=== PATIENT | female | born 1965 | race Caucasian/White ===

== ENCOUNTER 2018-10-14 10:50 | Inpatient (IN) ==
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
[2018-10-14 11:44] LABS: Bilirubin,Urine Negative (Negative); Blood,Urine Moderate (Negative); Clarity,Urine Cloudy (Clear); Color,Urine Yellow (Yellow); Glucose,Urine (UA) Normal (Normal); Ketones,Urine Negative (Negative); Leukocyte Esterase,Urine Large (Negative); Nitrite,Urine Negative (Negative); PH,Urine 6.5 pH Units (5.0-8.0); Protein,Urine Negative (Neg-Trace); Specific Gravity,Urine 1.005 (1.010-1.025); Urobilinogen,Urine Normal (Normal)
[2018-10-14 11:46] LABS: Hyaline Casts,Urine None Seen per lpf (None-Few); Squamous Epithelial Cell,Urine Many per lpf (None-Few); WBC,Urine 15-30 per hpf (0-3)
[2018-10-14 11:52] LABS: Amphetamine Screen,Urine Negative ng/mL (Cutoff=1000); Barbiturate Screen,Urine Negative ng/mL (Cutoff=200); Benzodiazepines Screen,Urine Positive ng/mL (Cutoff=200); Cannabinoid Screen,Urine Negative ng/mL (Cutoff = 50); Cocaine Screen,Urine Negative ng/mL (Cutoff= 300); Opiate Screen,Urine Negative ng/mL (Cutoff=300); Phencyclidine Screen,Urine Negative ng/mL (Cutoff=25)
[2018-10-14 11:56] LABS: Basophils % 0.3 %; Eosinophils # 0.1 K/mcL (0.0-0.6); Hematocrit 41.9 % (35.3-44.9); Immature Granulocytes % 0.3 % (0-4); Lymphocytes # 2.2 K/mcL (0.6-4.6); Lymphocytes % 20.8 %; Mean Corpuscular HGB Conc 33.4 g/dL (31.6-35.5); Mean Corpuscular Volume 86.9 fL (83.0-100.0); Mean Platelet Volume 10.5 fL (9.4-12.4); Monocytes # 0.6 K/mcL (0.0-1.3); Neutrophils # 7.6 K/mcL (1.6-8.9); Platelet Count 249 K/mcL (140-400); Red Blood Count 4.82 M/mcL (3.82-4.97); Red Cell Distribution Width 14.7 % (11.5-14.5); Segmented Neutrophils % 71.6 %
[2018-10-14 12:06] LABS: Acetaminophen < 10 mcg/mL (10-20); BUN/Creatinine Ratio 11 (6-26); Blood Urea Nitrogen 8 mg/dL (6-20); Calcium 9.7 mg/dL (8.6-10.3); Carbon Dioxide 24 mEq/L (23-29); Chloride 104 mEq/L (98-107); Ethanol < 10 mg/dL (Less than 10); Glucose 151 mg/dL (70-105); Osmolality,Calculated 285 (280-300); Salicylate < 2.5 mg/dL (15.0-30.0); Sodium 137 mEq/L (136-145); eGFR For Non-African Americans > 60 (> 60)
[2018-10-14 12:07] LABS: Bacteria,Urine Many per hpf (None-Few)
[2018-10-14 12:08] LABS: Yeast,Urine Few per hpf (None Seen)
[2018-10-14] MEDS ORDERED: MOM Conc 10 ML UD.LIQ PO PRN (14:08)
[2018-10-14] MEDS ORDERED: Mag Hydrox/Al Hydrox/Simeth 30 ML UDC PO PRN (14:08)
[2018-10-14] MEDS ORDERED: *HR* LORazepam 1 MG TABLET PO PRN (14:08)
[2018-10-14] MEDS ORDERED: Acetaminophen 325 MG TABLET PO PRN (14:08)
[2018-10-14] MEDS ORDERED: *HR* LORazepam 2 MG/ML VIAL IM PRN (14:08)
[2018-10-14] MEDS ORDERED: Ziprasidone 20 MG CAPSULE PO PRN (17:18)
[2018-10-14] MEDS ORDERED: Ziprasidone injection 20 MG/ML VIAL IM PRN (17:18)
[2018-10-14] MEDS ORDERED: *HR* Water for inj. (sterile) Vial IM PRN (17:18)
[2018-10-14] MEDS ORDERED: Albuterol 2.5 MG/3 ML NEBULIZER IH PRN (17:21)
[2018-10-14] MEDS ORDERED: diazePAM 10 MG TABLET PO PRN (17:21)
[2018-10-14] MEDS: Nicotine 21 MG PATCH.TD24 TD SCH (18:44)
[2018-10-15] MEDS: hydrOXYzine pamoate 25 MG CAPSULE PO PRN ×2 (01:55→20:48)
[2018-10-15] MEDS: traZODone 50 MG TABLET PO PRN ×2 (01:55→20:48)
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
[2018-10-15] MEDS: FLUoxetine 20 MG CAPSULE PO SCH (10:07)
[2018-10-15] MEDS: Nicotine 21 MG PATCH.TD24 TD SCH (10:08)
[2018-10-15] MEDS: Aspirin Enteric Coated 81 MG Tablet PO SCH (10:08)
[2018-10-15] MEDS: Multivit/Ca/Min/Fe/FA 1 TAB TABLET PO SCH (10:08)
[2018-10-15] MEDS: BuPROPion XL (24 HR) 150 MG TABLET PO SCH (10:08)
[2018-10-16] MEDS: BuPROPion XL (24 HR) 150 MG TABLET PO SCH (08:53)
[2018-10-16] MEDS: FLUoxetine 20 MG CAPSULE PO SCH (08:53)
[2018-10-16] MEDS: Aspirin Enteric Coated 81 MG Tablet PO SCH (08:53)
[2018-10-16] MEDS: Multivit/Ca/Min/Fe/FA 1 TAB TABLET PO SCH (08:53)
[2018-10-16] MEDS ORDERED: BuPROPion XL (24 HR) 150 MG TABLET PO SCH (09:00)
[2018-10-16 09:01] VITALS: BP 100/66
--- NOTE | 2018-10-16 09:50 | Discharge Summary ---
Date of Encounter: 10/16/18 Time of Encounter: 09:20 Diagnosis - Discharge Diagnosis (1) Depression Status: Acute Qualifiers: Depression Type: major depressive disorder Major depression recurrence: r ecurrent Active/Remission status: currently active Major depression episode severity: severe Psychotic features: without psychotic features Qualified Code(s): F33.2 - Major depressive disorder, recurrent severe without psychotic features Medications - Discharge Medications Prescriptions: hydrOXYzine pamoate [HydrOXYzine Pamoate] 25 mg PO TID PRN #45 capsule PRN Reason: Anxiety traZODone [TraZODone] 50 mg PO HS PRN #15 tablet PRN Reason: Insomnia BuPROPion XL (24 HR) [Wellbutrin Xl] 150 mg PO DAILY #15 tab.er.24h FLUoxetine HCl [Prozac] 40 mg PO DAILY 07/13/17 [History] Multivitamin [Multivitamins] 1 tab PO DAILY 07/13/17 [History] Cyclobenzaprine [Flexeril] 10 mg PO TID PRN #20 tablet 06/14/18 [Rx] diazePAM [Valium] 10 mg PO BID PRN 06/23/18 [History] Albuterol Neb [Proventil Neb] 2.5 mg IH TID PRN 10/14/18 [History] Albuterol Sulfate [Ventolin Hfa] 2 puff IH Q4H PRN 10/14/18 [History] Aspirin [Adult Aspirin Regimen] 81 mg PO DAILY 10/14/18 [History] Atorvastatin Calcium [Lipitor] 20 mg PO QAM 10/14/18 [History] BuPROPion XL (24 HR) [Wellbutrin Xl] 150 mg PO DAILY #15 tab.er.24h 10/16/18 [Rx] hydrOXYzine pamoate [HydrOXYzine Pamoate] 25 mg PO TID PRN #45 capsule 10/16/18 [Rx] traZODone [TraZODone] 50 mg PO HS PRN #15 tablet 10/16/18 [Rx] Allergy/AdvReac Type Severity Reaction Status Date / Time haloperidol [From Haldol] Allergy See Verified 10/14/18 14:45 Comments Results Procedures and tests throughout hospitalization: Completed Lab Orders Category Date Time Status Acetaminophen Stat Lab 10/14/18 11:34 Completed Basic Metabolic Panel Stat Lab 10/14/18 11:34 Completed Complete Blood Count [HEME] Stat Lab 10/14/18 11:34 Completed Drug Screen, Urine [UCHEM] Stat Lab 10/14/18 11:33 Completed Ethanol Stat Lab 10/14/18 11:34 Completed Salicylate Stat Lab 10/14/18 11:34 Completed Urinalysis reflex Microscopic [URIN] Stat Lab 10/14/18 11:22 Completed Provider Date of admission: 10/14/18 14:00 Primary care physician: PCP NONE Discharging clinician: Yadira Ruiz Psychiatry Exam - Constitutional Vitals: Temp Pulse Resp BP Pulse Ox 98.4 F 88 18 100/66 95 10/16/18 09:00 10/16/18 09:00 10/16/18 09:00 10/16/18 09:00 10/16/18 09:00 General appearance: age & developmentally appropriate, well-groomed, well- nourished - Musculoskeletal Gait: normal Station: relaxed Strength & Tone: normal for patient - Psychiatric Patient Orientation: Yes Person, Yes Time, Yes Place Level of alertness: Alert Behavior: calm, cooperative Psychomotor activity: Normal Eye Contact: Maintains Eye Contact Mood Description: Euthymic/stable Patient description of mood: Good Affect description: congruent with mood, full range Speech Volume: Normal Speech pattern: normal rate, normal rhythm, normal tone, fluent, spontaneous Language & Vocabulary: consistent with education Thought Process: Linear, Goal Oriented Thought Content: No Suicidal ideation, No Homicidal ideation, No Overt delusions Perceptual Disturbances: No Auditory hallucinations, No Visual hallucinations Attention Span Ability: Capable of Focused Attention Memory Description: Grossly Intact Patient Reliability: Reliable Historian Fund of knowledge: Yes abstraction ability, Yes aware of current events Intelligence Estimate: Average Judgment: Good Insight: Full Hospital Course Hospital course: Ms. Little is a 53 year old female was admitted for depression and suicidal thoughts as well as some concerns that there was a demon and her daughter. As we explored the demon, and it seemed that this is more a expression of how she felt her daughter was doing bad things and that based on her Scientologist zoroastrian one of the explanations for this was that it was the influence of the devil or a demon. No gross psychotic symptoms. He was started on Wellbutrin XL and continued on her Prozac and Valium. When necessary Vistaril was used for anxiety and when necessary trazodone for sleep.Patient was educated of diagnosis and the risk-benefit side effects of this alternative treatment options and was monitored for responsiveness and side effects. Mood anxiety sleep and appetite interest improved as did future orientation. Self-harm thoughts subsided and mood stabilized. Patient was able to attend both individual and group therapy sessions as well as meet with the psychiatrist daily and urged to discuss any medication or treatment issues or other concerns. The patient was educated primarily by verbal means about their diagnosis and manifestations in their life. The option for treatment including group and individual therapy programming was offered to the patient in addition to the use of medications with all their potential risks, benefits, and side effects as well as the risks of not taking medication and non-adhereance were discussed with the patient at length. The patient was given the opportunity to ask questions and was noted to participate in the treatment in the planning process. The patient felt ready and eager to be discharged from the inpatient psychiatric unit to continue on with treatment as an outpatient. The patient agreed that is they were safe for this disposition. The patient was considered to be able to participate in informed consent and decision making with respect to medical, legal, and financial issues of the time of discharge. At the time of discharge the patient adamantly denied any concerns for lethality including suicidal or homicidal thoughts ideations or plans and was future oriented toward ongoing mental health care. Time spent discussing smoking cessation with patient: 3 to 10 minutes Does patient wish to continue nicotine replacement upon disc: No - Time Spent with Patient Total time spent providing and/or coordinating discharge services: 25 Less than 30 minutes Specific discharge activities: Interval history reviewed. Available labs reviewed . Psychotherapy provided. Patient had an opportunity to ask questions and address concerns. Patient was in agreement with the treatment plan. The risks benefits and side effects of medications were discussed with the patient, including alternatives and treatment. The patient was educated on the abstaining from any alcohol or illicit substances, following up with all scheduled appointments, and taking all medications as prescribed. Assessment and Plan - Patient/Caregiver Discharge Instructions Activity: resume usual activities as tolerated Diet: regular diet Additional Instructions: Continue current medications. Follow up with outpatient mental health. Encourage continued therapy in a group or individual setting. The patient was discharged to home. - Follow up Plan Follow up with: NONE,PCP [Primary Care Provider] - Functional capacity at discharge: independent ambulation Overall status at discharge: patient is not back to baseline Disposition: Home, Self-Care Quality - Multiple Antipsychotics Patient discharged on 2 or more antipsychotic medications: No Procedures - Procedures Procedures: Medication Management, Crisis Stabilization, Supportive Therapy, Group Therapy, Psychoeducational Therapy
== END 2018-10-16 10:50 | disposition home or self-care (01) | DRG 885 ==
LOC: EMEROOARM 10:50 → 1ANU 14:00
PROVIDERS: ADMIT Psychiatry & Neurology Psychiatry; ATTEND Psychiatry & Neurology Psychiatry